=== PATIENT | female | born 1985 | race Caucasian/White ===

== ENCOUNTER 2021-06-16 07:48 | Emergency (ER) | payer MEDICAID, OTHER ==
[~2021-06-16] VITALS: Ht 157.5 cm; Wt 103.4 kg
[2021-06-16 08:55] LABS: Urine Bacteria NONE SEEN /hpf (None Seen); Urine Blood Negative /uL (Negative); Urine Specific Gravity 1.023 (1.001-1.035); Urine WBC 1 /hpf (0 - 5)
[2021-06-16] MEDS ORDERED: KETOROLAC TROMETH 60MG/2ML VIAL IM ONE (09:15)
[2021-06-16 09:52] VITALS: BP 131/85
== END 2021-06-16 09:35 | disposition home or self-care (01) ==
LOC: EDBD 07:48 → ER 07:48
DX: D27.0 Benign neoplasm of right ovary (principal); J45.909 Unspecified asthma, uncomplicated; Z90.710 Acquired absence of both cervix and uterus; Z90.49 Acquired absence of other specified parts of digestive tract
CPT/HCPCS: 74176; 81001; 96372; 99284; J1885